=== PATIENT | female | born 2000 | race Caucasian/White ===

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

== ENCOUNTER → 2022-05-02 | Outpatient (CLI) | payer OTHER, SELFPAY ==
[2022-05-04 17:07] LABS: QNTFERON TB Mitogen Value > 10.00 IU/mL (.); QNTFERON TB Nil Value 0.01 IU/mL (.); QNTFERON TB1+ Ag Value 0.02 IU/mL (.); QNTFERON TB2+ Ag Value 0.02 IU/mL (.)
[2022-05-04 17:31] LABS: QNTIFERON TB Positive Criteria Negative (Negative)
== END | disposition home or self-care (01) ==
PROVIDERS: PCP Family Medicine; Referring Provider Dermatology; Visit Provider Dermatology
DX: L40.0 Psoriasis vulgaris (principal); Z79.899 Other long term (current) drug therapy
CPT/HCPCS: 36415; 86480

== ENCOUNTER 2022-07-05 22:01 | Emergency (ER) | payer OTHER, SELFPAY ==
[2022-07-05 22:02] VITALS: BP 136/96; PULSE 66; RESP 18; TEMP 36.6; O2SAT 98; BMI 25.0
[2022-07-05 22:09] VITALS: RESP 16
--- NOTE | 2022-07-05 22:34 | CT_ITS ---
EXAM: CT HEAD WITHOUT INTRAVENOUS CONTRAST CLINICAL INDICATION: dizziness TECHNIQUE: Multiple axial images were obtained of the head without intravenous contrast. This CT exam was performed using one or more of the following dose reduction techniques: automated exposure control, adjustment of the mA and/or kV according to patient size, and/or use of iterative reconstruction technique. RADIATION DOSE: Total DLP: 779.24 mGy-cm. COMPARISON: No relevant prior studies available. FINDINGS: BRAIN AND EXTRA-AXIAL SPACES: Unremarkable. No intra- or extra-axial hemorrhage. No evidence of acute infarct. No intracranial mass or mass effect. There is preservation of the devine/white matter interface. Posterior fossa structures are unremarkable. Ventricles are appropriate for age. No hydrocephalus. Basal cisterns are patent. BONES/JOINTS: Unremarkable. No discrete lytic or blastic abnormalities. SINUSES: Retention cyst incidentally noted within the posterior aspect of the left maxillary antrum. No paranasal sinus air-fluid levels. MASTOID AIR CELLS: Unremarkable. Clear. AUDITORY SYSTEM: The internal auditory canals are symmetric. ORBITS: Visualized globes, extraocular muscles, optic nerves and retrobulbar fat appear unremarkable. CT/Brain/Head without Contrast IMPRESSION: No acute findings in the head/brain. Electronically Signed: Deejay Dawson MD at 23:41 EDT ,
[2022-07-05] MEDS: diazePAM 5 MG Tablet 2.5 MG PO (23:05)
[2022-07-05] MEDS: MethylPREDNISolone 125 MG/2 ML Vial IV (23:05)
[2022-07-05 23:31] LABS: Anion Gap 9 (5-15); BUN 13 mg/dL (7-18); Calcium,Total 9.2 mg/dL (8.5-10.1); Chloride 107 mmol/L (98-107); Creatinine, Serum 0.81 mg/dL (0.55-1.02); EST Glomerular Filtration Rate 96 mL/min (>60); Est Glom Filt Rate - Afr Amer 116 mL/min (>60); Estimated Creatinine Clearance 88.35 ml/min; Glucose 87 mg/dL (74-106); Potassium 3.6 mmol/L (3.5-5.1); Sodium Level 141 mmol/L (136-145); Thyroid Stim Hormone (TSH) 3.26 uIU/mL (0.358-3.74)
[2022-07-05 23:52] LABS: Absolute Lymphocyte Count 2.28 X10^3/uL (0.83-4.51); Absolute Neutrophil Count 4.2 X10^3/uL (2.0-7.7); Basophil# 0.04 X10^3/uL; Basophil% 0.5 % (0-1); Eosinophil# 0.14 X10^3/uL; Eosinophils% 1.9 % (0-5); Hematocrit 37.1 % (37-47); Hemoglobin 12.2 g/dL (12.0-15.0); Lymphocyte # 2.28 X10^3/ul (0.83-4.51); Lymphocyte % 30.9 % (19-41); Mean Corp Hgb Conc 32.9 g/dL (32-36); Mean Corpuscular Volume 91.4 fL (81-99); Mean Platelet Vol. 10.1 fl (6.2-12.0); Monocyte# 0.73 X10^3/uL; Monocyte% 9.9 % (0-10); NRBC Flagged by Analyzer 0 % (0-5); Neutrophil # 4.16 X10^3/uL (2.7-7.7); Neutrophil % 56.4 % (47-70); Platelet Count 262 K/mm3 (150-450); RBC Distribution Width CV 12.7 % (11.6-14.6); Red Blood Count 4.06 M/mm3 (4.2-5.4); White Blood Count 7.4 K/mm3 (4.4-11.0)
--- NOTE | 2022-07-06 00:42 | EDS_ITS ---
HPI History of Present Illness Chief Complaint: Dizziness Narrative Narrative: Patient is a 21-year-old female who states she has a past medical history of migraine headaches as well as recurrent dizziness. She states that she seen a neurologist secondary to the headaches and dizziness but did not have a direct diagnosis for her symptoms. She reports that over the past few days she has noticed ringing in her ears and a sense of dizziness that is more of a sense of motion like the room is spinning. She states this is different from her baseline. She reports she went to an urgent care where they tested for strep mono and COVID which were all negative. She states she still feels dizzy and with this comes in for evaluation [facility] Home Medications methylprednisolone 4 mg tablet 1 dose PO DAILY 03/07/20 [History Last Taken Unknown] norethindrone acetate 1.5 mg-ethinyl estradiol 30 mcg tablet 1 ea PO DAILY 03/07/20 [History Last Taken Unknown] diazepam 5 mg tablet (Valium) 5 mg PO TID PRN Dizziness/vertigo 5 days #15 tabs 07/06/22 [Rx Last Taken Unknown] Allergy/AdvReac Type Severity Reaction Status Date / Time hydromorphone [From Dilaudid] AdvReac Other Verified 07/05/22 22:05 prednisone AdvReac Nausea Verified 07/05/22 22:05 Social History Smoking Status: Never smoker [facility] ED Constitutional Constitutional ED: Denies chills or fever(s) Eyes Eyes: Denies change in vision ENT ENT ED: Reports other Details: Positive tinnitus ; Denies sore throat Cardiovascular Cardiovascular: Denies chest pain, palpitations or racing heartbeat Respiratory/Chest Respiratory/Chest: Denies cough or dyspnea Gastrointestinal Gastrointestinal: Denies abdominal pain, diarrhea, nausea or vomiting Genitourinary Genitourinary ED: Denies dysuria Musculoskeletal Musculoskeletal: Denies myalgias Integumentary Denies rash Neurologic Neurologic: Reports other Details: Positive dizziness ; Denies headache(s) or weakness Psychiatric Psychiatric: Denies anxiety Hematologic/Lymphatic Hematologic/Lymphatic: Denies easy bleeding or easy bruising EXAM Physical Exam Const Vital Signs: 07/05/22 22:02 07/05/22 22:09 07/05/22 22:28 Temperature 97.8 F Temperature Source Temporal Pulse Rate 66 Respiratory Rate 18 16 Respiratory Effort Normal Non-Labored Respiratory Pattern Normal Blood Pressure 136/96 H Blood Pressure Mean 109 Pulse Ox 98 Oxygen Delivery Method Room Air 07/06/22 01:01 Temperature Temperature Source Pulse Rate 66 Respiratory Rate 15 Respiratory Effort Respiratory Pattern Blood Pressure 116/70 Blood Pressure Mean Pulse Ox 100 Oxygen Delivery Method Positive well nourished and well developed General Appearance ED: well developed HEENT Reports TM's clear and moist mucous membranes Tympanic Membrane ED: Yes TM's clear Eyes PERRL and EOMs intact bilaterally Neck supple Resp normal respiratory effort and clear to auscultation bilaterally Cardio regular rate and regular rhythm GI normal to inspection, nondistended, normoactive bowel sounds, non-tender, non- distended and no masses Auscultation: normoactive bowel sounds Palpation: soft Extremity normal to inspection Neuro oriented x3 and CN's II-XII intact bilaterally Neuro Narrative: Cranial nerves II through XII are grossly intact there are no focal neurologic deficit. No pronator drift no dysmetria no truncal ataxia. NIH stroke scale score of 0. There is mild horizontal nystagmus noted and positive Hallpike Aspen exam on right. Sensorium / Orientation: alert Psych Psych Narrative: Patient has a nervous/anxious affect Skin no rashes or lesions noted MDM MDM MDM Narrative Medical decision making narrative: Patient presented to the ER with stable vitals and normal neurologic exam. She reported the dizziness as a sense of motion or spinning and stated did not completely resolve but improved with rest and was worse with position change. As she also reported new onset tinnitus there is concern that this is peripheral vertigo. However as she states that she has had recurrent dizziness for years with no obvious cause and states no one has performed any type of imaging I did elect to perform a head CT to rule out tumor or mass as a cause of her symptoms. At this time differential diagnosis includes peripheral vertigo versus central vertigo versus anemia or electrolyte derangement or acute kidney injury. Basic blood work blood was obtained which revealed no clinically significant finding. Head CT revealed no acute pathology either. Patient was given Solu-Medrol and Valium. She reported slight improvement of her dizziness and she was ambulated and could walk with a steady gait. Therefore at this time as patient has a negative work-up and is able to ambulate with a steady gait I do not feel she warrants CTA or further evaluation in the ER and she can have this followed up on an outpatient basis History & Record Review Discussion w/independent historian: Patient and Family Lab Data Attestation: I reviewed the patient's lab results. Labs: Laboratory Results - last 24 hr 07/05/22 07/05/22 22:43 22:43 WBC 7.4 RBC 4.06 L Hgb 12.2 Hct 37.1 MCV 91.4 MCH 30.0 MCHC 32.9 RDW Std Deviation 42.0 RDW Coeff of Ramiro 12.7 Plt Count 262 MPV 10.1 Immature Gran % (Auto) 0.400 Neut % (Auto) 56.4 Lymph % (Auto) 30.9 Bledsoe % (Auto) 9.9 Eos % (Auto) 1.9 Baso % (Auto) 0.5 Absolute Neuts (auto) 4.2 Absolute Lymphs (auto) 2.28 Nucleated RBC % 0 Sodium 141 Potassium 3.6 Chloride 107 Carbon Dioxide 25.0 Anion Gap 9 BUN 13 Creatinine 0.81 Estim Creat Clear Calc 88.35 Est GFR (MDRD) Af Amer 116 Est GFR (MDRD) Non-Af 96 BUN/Creatinine Ratio 16.0 Glucose 87 Calcium 9.2 Magnesium 2.0 TSH 3.26 Radiography Diagnostic Testing: Clinical Impression(s) from Imaging Studies Brain CT 07/05/22 22:34 IMPRESSION: No acute findings in the head/brain. Electronically Signed: Deejay Dawson MD at 23:41 EDT , Discharge Plan Triage Chief Complaint: Dizziness ED Provider: Jono Barillas Dx/Rx/DC Orders Clinical Impression: Vertigo Instructions: ED Dizziness, Uncertain Cause, ED Vertigo, Unspecified Prescriptions: New diazepam [Valium] 5 mg tablet 5 mg PO TID PRN (Reason: Dizziness/vertigo) 5 Days Qty: 15 0RF No Action methylprednisolone 4 MG tablet 1 dose PO DAILY Rx Instructions: DOSE PACK norethindrone ac-eth estradiol 1 EACH tablet 1 ea PO DAILY Stand Alone Forms: ED Work / School Excuse Primary Care Provider: Mariano Bond Referrals: Mariano Bond MD [Primary Care Provider] - Activity Restrictions/Additional Instructions: Please follow-up with your family doctor for repeat evaluation and discuss need for possible MRI to further assess the cause of your dizziness. If you have any further concerns return to the ER for repeat evaluation Disposition Disposition: Home, Self Care Discharge Date/Time: 07/06/22 01:07
[2022-07-06 01:01] VITALS: BP 116/70; PULSE 66; RESP 15; O2SAT 100
== END 2022-07-06 01:07 | disposition home or self-care (01) ==
PROVIDERS: Emergency Provider Emergency Medicine; PCP Family Medicine; Visit Provider Emergency Medicine
DX: R42 Dizziness and giddiness (principal); H55.00 Unspecified nystagmus; Z79.899 Other long term (current) drug therapy
CPT/HCPCS: 70450; 80048; 83735; 84443; 85025; 96374; 99284; A4216

== ENCOUNTER 2022-09-15 14:39 | Emergency (ER) | payer OTHER, SELFPAY ==
[2022-09-15 14:40] VITALS: BP 131/91; PULSE 72; RESP 16; TEMP 36.5; O2SAT 100; BMI 24.3
--- NOTE | 2022-09-15 15:04 | ED.VIS.FEGU ---
HPI <SAMANTHA De - Last Filed: 09/15/22 16:04> HPI - Female History of Present Illness Chief Complaint: Vag Bleeding Narrative Narrative: 21-year-old female presents with vaginal bleeding and cramping. Her last menstrual period was August 12. She was a couple days late and thinks she had a faint positive home test. Today she went to the OB clinic and had a serum test drawn but does not know the results. After she left she developed abdominal cramping and light vaginal bleeding with no clots. Denies dysuria or vaginal discharge. No fever or chills. She has no history of and is not on control or any medications. PFSH <SAMANTHA De - Last Filed: 09/15/22 16:04> [facility] Medical History no medical history Home Medications methylprednisolone 4 mg tablet 1 dose PO DAILY 03/07/20 [History Last Taken Unknown] norethindrone acetate 1.5 mg-ethinyl estradiol 30 mcg tablet 1 ea PO DAILY 03/07/20 [History Last Taken Unknown] diazepam 5 mg tablet (Valium) 5 mg PO TID PRN Dizziness/vertigo 5 days #15 tabs 07/06/22 [Rx Last Taken Unknown] Allergy/AdvReac Type Severity Reaction Status Date / Time hydromorphone [From Dilaudid] AdvReac Other Verified 09/15/22 14:41 prednisone AdvReac Nausea Verified 09/15/22 14:41 Family History no significant family his Surgical History no surgical history Social History Smoking Status: Never smoker ROS <SAMANTAH De - Last Filed: 09/15/22 16:04> ROS ED ROS Narrative Constitutional: Negative for fever, chills, malaise. CVS: Negative for chest pain. Respiratory: Negative for shortness of breath. GI: Positive for abdominal pain. Negative for nausea, vomiting. : Negative for dysuria, hematuria or frequency. EXAM <SAMANTHA De - Last Filed: 09/15/22 16:04> Physical Exam Narrative Exam Narrative: CONST: Patient sitting in no acute distress. EYES: Normal inspection. NECK: Normal inspection. RESP: No respiratory distress, CTAB. CVS: Regular rate and rhythm, no murmur, no gallop. ABD: Soft and nontender, no guarding or rebound, nondistended. SKIN: Color normal, no rash, warm, dry, intact. EXTREMITIES: Normal appearance, no pedal edema. NEURO: Oriented x4. PSYCH: Normal affect. Const Vital Signs: 09/15/22 14:40 Temperature 97.7 F L Temperature Source Temporal Pulse Rate 72 Respiratory Rate 16 Blood Pressure 131/91 H Blood Pressure Mean 104 Pulse Ox 100 Oxygen Delivery Method Room Air <Dr. Himanshu Lovelace MD - Last Filed: 09/15/22 17:13> Physical Exam Const Vital Signs: 09/15/22 14:40 Temperature 97.7 F L Temperature Source Temporal Pulse Rate 72 Respiratory Rate 16 Blood Pressure 131/91 H Blood Pressure Mean 104 Pulse Ox 100 Oxygen Delivery Method Room Air MDM <SAMANTHA De - Last Filed: 09/15/22 16:04> [facility] Narrative Medical decision making narrative: History gathered from: Patient and mom Patient's LMP was August 12. Had questionable positive home test now today having abdominal cramping and light vaginal bleeding. She appears well and nontoxic. Vital signs are within normal limits. She has a soft, benign abdominal exam. Urine test is negative. UA has 5-10 RBCs but no infection. I discussed with her this could be the start of her normal menstrual cycle and there is no indication for further emergent work-up. She had scheduled follow-up at the OB clinic and was discharged in stable condition. Differential: Menstruation, miscarriage, ectopic Lab Data Attestation: I reviewed the patient's lab results. Labs: Laboratory Results - last 24 hr 09/15/22 15:05 Urine Color Yellow Urine Clarity Clear Urine pH 6.0 Ur Specific [place] 1.015 Urine Protein Negative Urine Glucose (UA) Normal Urine Ketones Negative Urine Occult Blood 250 H Urine Nitrite Negative Urine Bilirubin Negative Urine Urobilinogen Normal Ur Leukocyte Esterase Negative Urine RBC 5-10 SEEN Urine WBC 0 SEEN Ur Squamous Epith Cells 0 SEEN Urine Bacteria 0 SEEN Urine Mucus 0 SEEN Urine Test Negative <Dr. Himanshu Lovelace MD - Last Filed: 09/15/22 17:13> [facility] Lab Data Labs: Laboratory Results - last 24 hr 09/15/22 15:05 Urine Color Yellow Urine Clarity Clear Urine pH 6.0 Ur Specific [place] 1.015 Urine Protein Negative Urine Glucose (UA) Normal Urine Ketones Negative Urine Occult Blood 250 H Urine Nitrite Negative Urine Bilirubin Negative Urine Urobilinogen Normal Ur Leukocyte Esterase Negative Urine RBC 5-10 SEEN Urine WBC 0 SEEN Ur Squamous Epith Cells 0 SEEN Urine Bacteria 0 SEEN Urine Mucus 0 SEEN Urine Test Negative Treatment and Re-Evaluation Narrative: I have personally performed a face to face assessment of the patient and have reviewed the HARISH Note. I performed a substantive portion of the visit including all aspects of the following. My yepez findings include: History: The patient had a little bit of spotting that lasted for a few hours on Saturday. It was very mild. She had some mild cramps with it. She did take a test the other day that was weakly positive. This morning she went to [facility] and had a blood test for but the results are not back. She started having some bleeding and cramping again after that which brought her in here. It is mild cramping. Its not much more than a normal menstrual cycle. No nausea vomiting fevers or chills. Not syncopal presyncopal or lightheaded. She is on no blood thinners. Exam: Patient awake alert no acute distress sitting comfortably in bed. She is not at all pale or diaphoretic. Abdomen is benign. No CVA tenderness. No pallor to the skin. She is not tachycardic. Medical Decision Making: We will initiate work-up with a test. If this is positive we will look further. Discharge Plan Triage Chief Complaint: Vag Bleeding ED Midlevel Provider: Jocelynn Cisse ED Provider: Himanshu Lovelace Dx/Rx/DC Orders Clinical Impression: Vaginal bleeding Instructions: ED Dysfunctional Uterine Bleeding Prescriptions: No Action methylprednisolone 4 MG tablet 1 dose PO DAILY Rx Instructions: DOSE PACK norethindrone ac-eth estradiol 1 EACH tablet 1 ea PO DAILY diazepam [Valium] 5 mg tablet 5 mg PO TID PRN (Reason: Dizziness/vertigo) 5 Days Qty: 15 0RF Primary Care Provider: Mariano Bond Referrals: Mariano Bond MD [Primary Care Provider] - Activity Restrictions/Additional Instructions: Urine test here is negative. This is likely the start of your menstrual period. You can always take another home test in 2-3 days. Please follow-up with the [facility]. Disposition Disposition: Home, Self Care Discharge Date/Time: 09/15/22 16:05
[2022-09-15 15:15] LABS: Bacteria 0 SEEN /hpf (None Seen); Mucous, Urine 0 SEEN /hpf (<or=2+); Squamous Epithelial Cells - UA 0 SEEN /hpf (5-10); White Blood Cells 0 SEEN /hpf (0-5)
[2022-09-15 15:22] LABS: Color, Urine Yellow (Yellow); Glucose, Dipstick Normal (Normal); Ketone-Dipstick Negative (Negative); Leukocyte Esterase-Dipstick Negative /ul (Negative); Nitrite-Dipstick Negative (Negative); Occult Blood-Urine 250 /ul (Negative); Protein-Dipstick Negative (Negative); Specific Gravity, Urine 1.015 (1.002-1.030); Urine Bilirubin Dipstick Negative (Negative); Urine Clarity Clear (Clear); Urine Urobilinogen Normal (Normal)
[2022-09-15 15:27] LABS: Internal QC Validated? YES +Cl - CLEAR BKGD; Pregnancy, Urine Negative Negative
[2022-09-15 15:35] LABS: Red Blood Cells-Urine 5-10 SEEN /hpf (0-5)
== END 2022-09-15 16:05 | disposition home or self-care (01) ==
PROVIDERS: Physician Assistant; Emergency Provider Emergency Medicine; PCP Family Medicine; Visit Provider Emergency Medicine
DX: N93.9 Abnormal uterine and vaginal bleeding, unspecified (principal); Z79.899 Other long term (current) drug therapy
CPT/HCPCS: 81001; 81025; 99282

== ENCOUNTER 2023-02-08 13:45 | Emergency (ER) | payer OTHER, SELFPAY ==
[2023-02-08 13:46] VITALS: BP 127/74; PULSE 63; RESP 16; TEMP 36.1; O2SAT 97
[2023-02-08 14:12] VITALS: BMI 23.4
--- NOTE | 2023-02-08 14:50 | RAD_ITS ---
STUDY: X-RAY CHEST REASON FOR EXAM: Female, 22 years old. covid 19 dyspnea TECHNIQUE: Single AP portable view of the chest. COMPARISON: Comparison is made with prior study dated September 04, 2020. FINDINGS: The lungs are clear and expanded. There is no demonstrated pleural abnormality. Normal size heart. Normal mediastinum and [place]. Normal visualized pulmonary arteries. Normal visualized aortic arch and descending thoracic aorta. Normal visualized thoracic spine. Normal visualized ribs, clavicles, and shoulders. There is no demonstrated abnormality of the visualized soft tissue structures of the upper abdomen. RAD/Chest 1 View (Portable) IMPRESSION: Normal x-ray examination of the chest. Electronically Signed: Phil Gallagher MD at 15:26 EST ,
--- NOTE | 2023-02-08 16:06 | ED.VIS.DYS ---
HPI History of Present Illness Chief Complaint: Shortness of Breath Informant: patient and parent Narrative Narrative: 22-year-old female presenting to the emergency room chief complaint of shortness of breath. Patient recently tested positive for COVID-19. She has developed some shortness of breath and some chest pain. She describes the chest pain as anterior sharp. Worse with movement and touch and cough. No sputum production. She called primary care today to see if there is anything could help her with her breathing and she was referred to emergency. PFSH PFSH Home Medications methylprednisolone 4 mg tablet 1 dose PO DAILY 03/07/20 [History Last Taken Unknown] norethindrone acetate 1.5 mg-ethinyl estradiol 30 mcg tablet 1 ea PO DAILY 03/07/20 [History Last Taken Unknown] diazepam 5 mg tablet (Valium) 5 mg PO TID PRN Dizziness/vertigo 5 days #15 tabs 07/06/22 [Rx Last Taken Unknown] Allergy/AdvReac Type Severity Reaction Status Date / Time hydromorphone [From Dilaudid] AdvReac Other Verified 02/08/23 13:46 prednisone AdvReac Nausea Verified 02/08/23 13:46 Social History Smoking Status: Never smoker ROS ROS ED Constitutional Constitutional ED: Denies chills or weight loss Eyes Eyes: Denies change in vision or diplopia ENT ENT ED: Denies ear pain, rhinorrhea or sore throat Cardiovascular Cardiovascular: Reports chest pain; Denies orthopnea, palpitations or racing heartbeat Respiratory/Chest Respiratory/Chest: Reports cough and dyspnea; Denies orthopnea Gastrointestinal Gastrointestinal: Denies abdominal pain, diarrhea, nausea or vomiting Genitourinary Genitourinary ED: Denies dysuria, hematuria or urinary frequency Musculoskeletal Musculoskeletal: Reports myalgias; Denies arthralgias Integumentary Denies abscess or rash Neurologic Neurologic: Denies headache(s) or weakness Psychiatric Psychiatric: Denies anxiety, depression, suicidal ideation or suicidal thoughts Endocrine Endocrinology: Denies polydipsia, polyphagia or polyuria Allergic/Immunologic Allergic/Immunologic ED: Denies mouth swelling, tongue swelling or urticaria EXAM Physical Exam Narrative Exam Narrative: 22-year-old female sitting comfortably in the bed. She is not dyspneic. She has no conversational dyspnea. Const Vital Signs: 12/08/23 13:46 02/08/23 14:12 Temperature 97.0 F L Temperature Source Temporal Pulse Rate 63 Respiratory Rate 16 Respiratory Effort Short of Breath Respiratory Depth Normal Respiratory Pattern Normal Blood Pressure 127/74 H Blood Pressure Mean 91 Pulse Ox 97 Oxygen Delivery Method Room Air Positive well nourished and well developed General Appearance ED: well developed HEENT Reports normocephalic, head/scalp atraumatic and moist mucous membranes Eyes PERRL and EOMs intact bilaterally Neck no lymphadenopathy, supple and no JVD Chest Wall Chest Narrative: Tender palpation of the chest wall in the cartilaginous portion just to the right and left of the sternum. This reproduces the patient's pain. Resp normal respiratory effort and clear to auscultation bilaterally Cardio regular rate, regular rhythm and no murmurs GI normal to inspection, nondistended, normoactive bowel sounds and non-tender Palpation: soft Back/Spine no CVA tenderness and normal ROM Extremity normal to inspection General Extremety ED: Negative for edema General Extremity: Negative for edema Neuro oriented x3 and CN's II-XII intact bilaterally Sensorium / Orientation: alert Motor Exam: strength 5/5 throughout Psych mental status grossly normal Mood & Affect: Negative for depressed or tearful Skin no rashes or lesions noted and no wounds MDM MDM MDM Narrative Medical decision making narrative: My independent rotation of the chest x-ray is no acute process. Radiography Diagnostic Testing: Clinical Impression(s) from Imaging Studies Chest X-Ray 02/08/23 14:50 IMPRESSION: Normal x-ray examination of the chest. Electronically Signed: Phil Gallagher MD at 15:26 EST , Discharge Plan Triage Chief Complaint: Shortness of Breath ED Provider: Derek Ramachandran Dx/Rx/DC Orders Clinical Impression: COVID-19, Acute dyspnea Instructions: Coronavirus Disease 2019 (COVID-19): Caring for Yourself or Others Prescriptions: No Action methylprednisolone 4 MG tablet 1 dose PO DAILY Rx Instructions: DOSE PACK norethindrone ac-eth estradiol 1 EACH tablet 1 ea PO DAILY diazepam [Valium] 5 mg tablet 5 mg PO TID PRN (Reason: Dizziness/vertigo) 5 Days Qty: 15 0RF Primary Care Provider: Mariano Bond Referrals: Mariano Bond MD [Primary Care Provider] - As Needed Disposition Disposition: Home, Self Care
== END 2023-02-08 16:26 | disposition home or self-care (01) ==
PROVIDERS: Emergency Provider Emergency Medicine; PCP Family Medicine; Visit Provider Emergency Medicine
DX: U07.1 COVID-19 (principal); R06.00 Dyspnea, unspecified
CPT/HCPCS: 71045; 99282

== ENCOUNTER 2023-10-17 00:12 | Emergency (ER) | payer OTHER, SELFPAY ==
[2023-10-17 00:12] VITALS: BP 116/4; PULSE 78; RESP 16; TEMP 37.1; O2SAT 98
[2023-10-17] MEDS: 0.9% Normal Saline (1000mL) 1,000 ML 999 ML IV (01:03)
[2023-10-17] MEDS: DiphenhydrAMINE 50 MG/ML Syringe IV (01:03)
[2023-10-17 01:11] LABS: Mucous, Urine 0 SEEN /hpf (<or=2+)
[2023-10-17 01:14] LABS: Color, Urine Yellow (Yellow); Glucose, Dipstick Normal (Normal); Ketone-Dipstick Negative (Negative); Leukocyte Esterase-Dipstick 25 /ul (Negative); Nitrite-Dipstick Negative (Negative); Occult Blood-Urine Negative /ul (Negative); Protein-Dipstick Negative (Negative); Specific Gravity, Urine 1.005 (1.002-1.030); Urine Bilirubin Dipstick Negative (Negative); Urine Clarity Clear (Clear); Urine Urobilinogen Normal (Normal)
[2023-10-17 01:16] LABS: Absolute Lymphocyte Count 2.07 X10^3/uL (0.83-4.51); Absolute Neutrophil Count 5.3 X10^3/uL (2.0-7.7); Basophil# 0.03 X10^3/uL; Basophil% 0.4 % (0-1); Eosinophil# 0.07 X10^3/uL; Eosinophils% 0.8 % (0-5); Hematocrit 31.3 % (37-47); Hemoglobin 10.4 g/dL (12.0-15.0); Lymphocyte # 2.07 X10^3/ul (0.83-4.51); Lymphocyte % 25.1 % (19-41); Mean Corp Hgb Conc 33.2 g/dL (32-36); Mean Corpuscular Hgb 30.1 pg (27.0-32.0); Mean Corpuscular Volume 90.7 fL (81-99); Mean Platelet Vol. 9.6 fl (6.2-12.0); Monocyte# 0.74 X10^3/uL; NRBC Flagged by Analyzer 0 % (0-5); Neutrophil # 5.29 X10^3/uL (2.7-7.7); Neutrophil % 64.2 % (47-70); Platelet Count 205 K/mm3 (150-450); RBC Distribution Width CV 13.1 % (11.6-14.6); RBC Distribution Width SD 43.1 fl (35.1-43.9); Red Blood Count 3.45 M/mm3 (4.2-5.4); White Blood Count 8.2 K/mm3 (4.4-11.0)
[2023-10-17 01:27] LABS: Anion Gap 6 (5-15); BUN 6 mg/dL (7-18); BUN/Creat Ratio 11.4 RATIO (10-20); Calcium,Total 8.5 mg/dL (8.5-10.1); Chloride 106 mmol/L (98-107); Creatinine, Serum 0.53 mg/dL (0.55-1.02); EST Glomerular Filtration Rate 156 mL/min (>60); Est Glom Filt Rate - Afr Amer 188 mL/min (>60); Glucose 84 mg/dL (74-106); Potassium 3.5 mmol/L (3.5-5.1); Sodium Level 138 mmol/L (136-145)
[2023-10-17 01:52] LABS: Red Blood Cells-Urine 0-5 SEEN /hpf (0-5); Squamous Epithelial Cells - UA 5-10 SEEN /hpf (5-10); White Blood Cells 0-5 SEEN /hpf (0-5)
[2023-10-17 01:53] LABS: Bacteria 2+ /hpf (None Seen)
--- NOTE | 2023-10-17 02:06 | EDS_ITS ---
HPI History of Present Illness Chief Complaint: Flank Pain Informant: patient Narrative Narrative: Patient is a 22-year-old female who is a G1, P0 approximately 21 weeks . She states that over the last 5 days she has had right sided back/flank pain. She states there was no trauma or excessive activity prior to the pain beginning. She states there has been no dysuria or hematuria and she denies any vaginal bleeding or discharge. She states that the pain does seem to be worse with motion. She denies any loss of bowel or bladder control or IV drug use. She states she contacted her OB secondary to persistent pain and was advised to go to the ER for evaluation. [facility] Medical History (Updated 10/22/23 @ 23:[address] Jono Barillas, DO) Bulging discs Depression Anxiety Tear of meniscus of left knee Chronic migraine Home Medications ?Medication ?Instructions ?Recorded ?Last Taken ?Type methylprednisolone 4 mg tablet 1 dose PO DAILY 03/07/20 Unknown History norethindrone acetate 1.5 1 ea PO DAILY 03/07/20 Unknown History mg-ethinyl estradiol 30 mcg tablet diazepam 5 mg tablet (Valium) 5 mg PO TID PRN Dizziness/vertigo 07/06/22 Unknown Rx 5 days #15 tabs Allergy/AdvReac Type Severity Reaction Status Date / Time hydromorphone (From Dilaudid) AdvReac Other Verified 10/17/23 00:17 prednisone AdvReac Nausea Verified 10/17/23 00:17 Surgical History Hx of appendectomy Social History Smoking Status: Never smoker ROS ROS ED Constitutional Constitutional ED: Denies chills or fever(s) ENT ENT ED: Denies sore throat Cardiovascular Cardiovascular: Denies chest pain Respiratory/Chest Respiratory/Chest: Denies cough or dyspnea Gastrointestinal Gastrointestinal: Reports nausea; Denies abdominal pain, diarrhea or vomiting Genitourinary Genitourinary ED: Denies dysuria or hematuria Musculoskeletal Musculoskeletal: Reports back pain Integumentary Denies rash Neurologic Neurologic: Denies headache(s) or paresthesias Hematologic/Lymphatic Hematologic/Lymphatic: Denies easy bleeding or easy bruising EXAM Physical Exam Const Vital Signs: 10/17/23 00:12 Temperature 98.7 F Temperature Source Oral Pulse Rate 78 Respiratory Rate 16 Blood Pressure 116/4 L Blood Pressure Mean 41 Pulse Ox 98 Oxygen Delivery Method Room Air Positive well nourished and well developed General Appearance ED: well developed; Negative for pallor HEENT HEENT Narrative: No secondary findings in the posterior pharynx to suggest infection Eyes PERRL and EOMs intact bilaterally General Eye ED: Negative for scleral icterus Neck supple Resp normal respiratory effort and clear to auscultation bilaterally Cardio regular rate and regular rhythm Rate: other Other Details: Radial and carotid pulses equal and symmetric GI non-tender and non-distended GI Narrative: Abdomen is gravid with fundus consistent with reported gestational age No pain with palpation Auscultation: normoactive bowel sounds Palpation: soft Back/Spine Back/Spine Narrative: Positive right CVA pain No bony deformity or step-off of the thoracic or lumbar spine no midline tenderness to palpation No saddle anesthesia. Negative straight leg raise. No clonus or Babinski. Patellar reflexes are plus 2 out of 4 bilaterally No overlying soft tissue changes to suggest trauma or infection Extremity normal to inspection Extremity Narrative: No asymmetric edema no pitting edema negative Homans' sign bilaterally Neuro oriented x3, CN's II-XII intact bilaterally and no sensory deficits noted Sensorium / Orientation: alert Motor Exam: strength 5/5 throughout Psych mental status grossly normal Skin no rashes or lesions noted and no wounds General Skin Exam: Negative for jaundice or pallor MDM MDM MDM Narrative Medical decision making narrative: Patient arrived to the ER with stable vitals. She reported 5 days worth of pain that does seem to worsen with motion but denying direct trauma. She also denied any hematuria or vaginal bleeding or discharge. Differential diagnosis is for complications such as ruptured placenta versus subchorionic hemorrhage versus spontaneous miscarriage versus ovarian cyst versus kidney stone versus pyelonephritis. Secondary to this basic lab work and urine sample were obtained. Patient's white count and creatinine are normal. Urine shows no blood or signs of overt infection. As patient is I do not feel there is need for CT scan as she is not showing signs of pyelonephritis/urosepsis or acute kidney injury. Also there is no blood in the urine to suggest potential kidney stone. On reevaluation vitals are stable and as she is low risk for cauda equina or epidural abscess and the fact that she is I do feel she would benefit more from a renal ultrasound to check for potential kidney stone versus a CT scan. The patient will be given an outpatient order form for this and the plan of care was discussed with the patient. She is agreeable to it and as overall workup is negative and vitals are stable I do not feel there is need for admission and she is otherwise safe for discharge. History & Record Review Discussion w/independent historian: Patient Lab Data Attestation: I reviewed the patient's lab results. Labs: Laboratory Results - last 24 hr 10/17/23 10/17/23 01:00 01:05 WBC 8.2 RBC 3.45 L Hgb 10.4 L Hct 31.3 L MCV 90.7 MCH 30.1 MCHC 33.2 RDW Std Deviation 43.1 RDW Coeff of Ramiro 13.1 Plt Count 205 MPV 9.6 Immature Gran % (Auto) 0.500 Neut % (Auto) 64.2 Lymph % (Auto) 25.1 Gooding % (Auto) 9.0 Eos % (Auto) 0.8 Baso % (Auto) 0.4 Absolute Neuts (auto) 5.3 Absolute Lymphs (auto) 2.07 Nucleated RBC % 0 Sodium 138 Potassium 3.5 Chloride 106 Carbon Dioxide 26.0 Anion Gap 6 BUN 6 L Creatinine 0.53 L Est GFR (MDRD) Af Amer 188 Est GFR (MDRD) Non-Af 156 BUN/Creatinine Ratio 11.4 Glucose 84 Calcium 8.5 Urine Color Yellow Urine Clarity Clear Urine pH 7.0 Ur Specific Hartly 1.005 Urine Protein Negative Urine Glucose (UA) Normal Urine Ketones Negative Urine Occult Blood Negative Urine Nitrite Negative Urine Bilirubin Negative Urine Urobilinogen Normal Ur Leukocyte Esterase 25 H Urine RBC 0-5 SEEN Urine WBC 0-5 SEEN Ur Squamous Epith Cells 5-10 SEEN Urine Bacteria 2+ Urine Mucus 0 SEEN Discharge Plan Triage Chief Complaint: Flank Pain ED Provider: Jono Barillas Dx/Rx/DC Orders Clinical Impression: Right flank pain, Instructions: ED Flank Pain, Uncertain Cause Prescriptions: No Action methylprednisolone 4 MG tablet 1 dose PO DAILY Rx Instructions: DOSE PACK norethindrone ac-eth estradiol 1 EACH tablet 1 ea PO DAILY diazepam [Valium] 5 mg tablet 5 mg PO TID PRN (Reason: Dizziness/vertigo) 5 Days Qty: 15 0RF Primary Care Provider: Mariano Bond Referrals: Mariano Bond MD [Primary Care Provider] - Activity Restrictions/Additional Instructions: Your workup today did not reveal any blood in your urine to correlate with kidney stone. Your urine appears contaminated not infected but it will be sent for culture and if it is positive for infection you will be notified otherwise no news indicates no true infection. Please obtain your outpatient kidney ultrasound to further assess the cause of your pain and return to the ER should you have any further concerns Print Language: Spanish Disposition Disposition: Home, Self Care Discharge Date/Time: 10/17/23 02:15
[2023-10-17] MEDS: oxyCODONE 5 MG Tablet 10 MG PO (02:12)
[2023-10-17 02:13] VITALS: BP 100/64; PULSE 62; RESP 18; TEMP 36.6; O2SAT 100
== END 2023-10-17 02:15 | disposition home or self-care (01) ==
PROVIDERS: Emergency Provider Emergency Medicine; PCP Family Medicine; Visit Provider Emergency Medicine
DX: O99.891 Other specified diseases and conditions complicating pregnancy (principal); Z3A.21 21 weeks gestation of pregnancy; R10.9 Unspecified abdominal pain; Z90.49 Acquired absence of other specified parts of digestive tract
CPT/HCPCS: 80048; 81001; 85025; 87086; 87088; 96361; 96374; 99284; J7030; A4216

== ENCOUNTER → 2023-10-19 | Outpatient (CLI) | payer OTHER, SELFPAY ==
--- NOTE | 2023-10-19 10:11 | US_ITS ---
STUDY: RENAL ULTRASOUND - COMPLETE REASON FOR EXAM: Female, 22 years old. Right flank pain TECHNIQUE: Ultrasound evaluation of the kidneys was performed with real-time and static westfall-scale imaging. COMPARISON: None. FINDINGS: RIGHT KIDNEY: Normal location of the right kidney, which is normal in size. The right kidney measures 9.9 x 4.6 x 4.4 cm. There is a normal cortex of the right kidney. The renal cortex measures 1.0 cm. There is no right renal mass or cyst. There are no right renal calculi. There is no right hydronephrosis. DISTAL RIGHT URETER: There is non-visualization of the distal right ureter. There is no demonstrated right ureterovesical junction calculus. There is a visualized right ureteral jet. LEFT KIDNEY: Normal location of the left kidney, which is normal in size. The left kidney measures 10.0 x 4.7 x 5.2 cm. There is a normal cortex of the left kidney. The renal cortex measures 1.0 cm. There is no left renal mass or cyst. There are no left renal calculi. There is no left hydronephrosis. DISTAL LEFT URETER: There is non-visualization of the distal left ureter. There is no demonstrated left ureterovesical junction calculus. There is a visualized left ureteral jet. AORTA: There is no elongation or tortuosity of the abdominal aorta. I.V.C.: The IVC is patent. BLADDER: The bladder is incompletely distended, but sonographically normal US/Kidney and Bladder IMPRESSION: No suspicious sonographic findings Electronically Signed: Nakul Moreno MD at 15:22 EDT ,
== END | disposition home or self-care (01) ==
PROVIDERS: PCP Family Medicine; Referring Provider Emergency Medicine; Visit Provider Emergency Medicine
DX: R10.9 Unspecified abdominal pain (principal)
CPT/HCPCS: 76770

== ENCOUNTER 2023-11-27 11:30 | Outpatient (CLI) | payer SELFPAY ==
[2023-11-27 11:59] VITALS: BP 119/68; PULSE 75
[2023-11-27 12:00] VITALS: PULSE 79; RESP 15; TEMP 36.6; O2SAT 95; O2SAT 99
[2023-11-27 12:16] VITALS: BMI 25.2
--- NOTE | 2023-11-27 13:33 | OB.TRI.HP_ITS ---
HPI - General General Date of Service: 11/27/23 HPI Narrative GERALDINE LOPEZ, is a 23 F @ 27.1 week who presents c/o no movement appreciated since friday 11/24 PM [facility] Medical History (Updated 11/27/23 @ 13:[address] Susie Vega MD) 27 weeks gestation of Bulging discs Depression Anxiety Tear of meniscus of left knee Chronic migraine Home Medications ?Medication ?Instructions ?Recorded ?Last Taken ?Type methylprednisolone 4 mg tablet 1 dose PO DAILY 03/07/20 Unknown History norethindrone acetate 1.5 1 ea PO DAILY 03/07/20 Unknown History mg-ethinyl estradiol 30 mcg tablet diazepam 5 mg tablet (Valium) 5 mg PO TID PRN Dizziness/vertigo 07/06/22 Unknown Rx 5 days #15 tabs Allergy/AdvReac Type Severity Reaction Status Date / Time hydromorphone (From Dilaudid) AdvReac Other Verified 10/17/23 00:17 prednisone AdvReac Nausea Verified 10/17/23 00:17 Surgical History Hx of appendectomy Social History Smoking Status: Never smoker NST FHR Rate Baby A Baseline: 130 Variability:: Moderate Accelerations:: 10 x 10 Decelerations:: Variable (one variable with quick recovery to baseline then 20min of reactive cat 1 tracing after) NST Reactive:: Yes FHR Category:: Category I Uterine Activity:: no ctx Assessment & Plan (1) Decreased movement affecting management of mother, antepartum: QUALIFIERS: Fetus number: single or unspecified fetus Qualified Code(s): O36.8190 - Decreased movements, unspecified trimester, not applicable or unspecified (2) 27 weeks gestation of : PLAN: Plan @ 27 weeks with NO FM appreciated since 11/24 1) NST reactive cat 1- appropriate for gestational age - well being established. 2) Dc home follow up in office as scheduled
== END 2023-11-27 12:50 | disposition home or self-care (01) ==
LOC: WPOUT 11:37 → WP 11:37
PROVIDERS: PCP Family Medicine; Referring Provider Obstetrics & Gynecology; Visit Provider Obstetrics & Gynecology
DX: O36.8120 Decreased fetal movements, second trimester, not applicable or unspecified (principal); Z3A.27 27 weeks gestation of pregnancy
CPT/HCPCS: 59050; 99221; G0378